=== PATIENT | female | born 1995 | race Caucasian/White ===

== ENCOUNTER 2018-08-22 17:06 | Inpatient (IN) | payer OTHER ==
[2018-08-22] MEDS ORDERED: hydrOXYzine Pamoate 25 MG Cap ONE (17:23)
[2018-08-22] MEDS ORDERED: Ampicillin 2 GM AdvVial IV ONE (18:52)
[2018-08-22] MEDS ORDERED: Misoprostol 25 MCG (1/4 of 100 MCG) Tab ONE (18:54)
[2018-08-22] MEDS ORDERED: Sodium Chloride 0.9% 100 ML ONE (18:54)
[2018-08-22] MEDS ORDERED: Tranexamic Acid 1,000 MG in Sodium Chloride 0.9% 100 ML IV PRN (19:04)
[2018-08-22] MEDS ORDERED: Sodium Chloride 0.9% 2.5 ML Syringe FLUSH PRN (19:04)
[2018-08-22] MEDS ORDERED: Methylergonovine 0.2 MG/1 ML Amp IM PRN (19:04)
[2018-08-22] MEDS ORDERED: Ondansetron 4 MG/2 ML SDV IV PRN (19:04)
[2018-08-22] MEDS ORDERED: Nalbuphine 10 MG/1 ML Vial IVPUSH PRN (19:04)
[2018-08-22] MEDS ORDERED: Sodium Chloride 0.9% 10 ML Syringe FLUSH PRN (19:04)
[2018-08-22] MEDS ORDERED: Carboprost Tromethamine 250 MCG/1 ML Amp IM PRN (19:04)
[2018-08-22] MEDS ORDERED: Lidocaine 1% 50 ML MDV INJECT PRN (19:04)
[2018-08-22] MEDS ORDERED: Misoprostol 200 MCG Tab PO PRN (19:04)
[2018-08-22] MEDS ORDERED: Water For Irrigation,Sterile 1,000 ML Container IRR PRN (19:04)
[2018-08-22] MEDS ORDERED: Terbutaline 1 MG/ML SDV SUBCUT PRN (19:09)
[2018-08-22] MEDS ORDERED: Misoprostol 25 MCG (1/4 of 100 MCG) Tab VAG PRN (19:09)
[2018-08-22] MEDS ORDERED: Oxytocin/0.9 % Sodium Chloride 30 UNIT/500 ML BAG IV SCH ×2 (19:15)
[2018-08-22] MEDS: Sodium Chloride 0.9% 1,000 ML IV SCH (19:22)
[2018-08-22] MEDS: Ampicillin 1 GM in Sodium Chloride 0.9% 50 ML IV SCH (23:40)
[2018-08-23] MEDS ORDERED: Misoprostol 25 MCG (1/4 of 100 MCG) Tab VAG PRN (01:00)
[2018-08-23] MEDS: Ampicillin 1 GM in Sodium Chloride 0.9% 50 ML IV SCH ×5 (04:07→19:55)
[2018-08-23] MEDS: Butorphanol 1 MG/ML SDV IVPUSH PRN ×2 (09:38→11:49)
[2018-08-23] MEDS: Sodium Chloride 0.9% 1,000 ML IV SCH ×3 (11:00→17:36)
[2018-08-23] MEDS ORDERED: Lidocaine HCl/EPINEPHrine 5 ML IJ ONE (15:41)
--- NOTE | 2018-08-23 15:41 | PCM.PREANE ---
Preanesthetic Assessment - Anesthesia/Transfusion/Family Hx Anesthesia History: Prior Anesthesia Without Reaction Family History of Anesthesia Reaction: No - Review of Systems General: No Symptoms Pulmonary: No Symptoms Cardiovascular: No Symptoms Gastrointestinal: No Symptoms Neurological: No Symptoms Other: Reports: None - Physical Assessment Height: 5 ft 5 in Weight: 63.049 kg ASA Class: 2 Mental Status: Alert & Oriented x3 Airway Class: Mallampati = 2 Dentition: Reports: Normal Dentition Thyro-Mental Finger Breadths: 3 Mouth Opening Finger Breadths: 3 ROM/Head Extension: Full Lungs: Clear to Auscultation, Normal Respiratory Effort Cardiovascular: Regular Rate, Regular Rhythm - Lab Values: Laboratory Last Values WBC 14.79 K/uL (4.0-11.0) H 08/22/18 18: RBC 4.41 M/uL (4.30-5.90) 08/22/18 18: Hgb 11.3 g/dL (12.0-16.0) L 08/22/18 18: Hct 33.9 % (36.0-46.0) L 08/22/18 18: MCV 76.9 fL (80.0-98.0) L 08/22/18 18: MCH 25.6 pg (27.0-32.0) L 08/22/18 18: MCHC 33.3 g/dL (31.0-37.0) 08/22/18 18: RDW Std Deviation 43.0 fl (28.0-62.0) 08/22/18 18: RDW Coeff of Rhiannon 16 % (11.0-15.0) H 08/22/18 18: Plt Count 173 K/uL (150-400) 08/22/18 18: MPV 9.90 fL (7.40-12.00) 08/22/18 18: Nucleated RBC % 0.0 /100WBC 08/22/18 18: Nucleated RBCs # 0 K/uL 08/22/18 18: Blood Type O POSITIVE 08/22/18 18: Antibody Screen NEGATIVE 08/22/18 18: - Allergies Allergies/Adverse Reactions: Allergies Allergy/AdvReac Type Severity Reaction Status Date / Time No Known Allergies Allergy Verified 08/22/18 19:02 - Acknowledgements Anesthesia Type Planned: Epidural Pt an Appropriate Candidate for the Planned Anesthesia: Yes Alternatives and Risks of Anesthesia Discussed w Pt/Guardian: Yes Pt/Guardian Understands and Agrees with Anesthesia Plan: Yes PreAnesthesia Questionnaire HEENT History: Reports: None Cardiovascular History: Reports: None Respiratory History: Reports: None Gastrointestinal History: Reports: GERD Genitourinary History: Reports: None PHOTOGRAPH ENLARGER History: Reports: : 1 Para: 0 LMP (Approximate): Musculoskeletal History: Reports: None Neurological History: Reports: None Psychiatric History: Reports: None Endocrine/Metabolic History: Reports: None Immunologic History: Reports: None Oncologic (Cancer) History: Reports: None Dermatologic History: Reports: None - Infectious Disease History Infectious Disease History: Reports: None - Past Surgical History HEENT Surgical History: Reports: Tonsillectomy Other HEENT Surgeries/Procedures: 2007 GI Surgical History: Reports: Appendectomy Other GI Surgeries/Procedures: 2017 - SUBSTANCE USE Smoking Status *Q: Never Smoker Second Hand Smoke Exposure: No Recreational Drug Use History: No - CURRENT (IN HOUSE) MEDS Current Meds: Current Medications Butorphanol Tartrate (Stadol) 1 mg IVPUSH Q1H PRN PRN Reason: Pain Last Admin: 08/23/18 11:49 Dose: 1 mg Carboprost Tromethamine (Hemabate Ds) 250 mcg IM ASDIRECTED PRN PRN Reason: Post Hemorrhage Oxytocin/Sodium Chloride (Oxytocin 30 Unit/500 Ml-Ns) 30 unit in 500 mls @ 999 mls/hr IV TITRATE DEE Sodium Chloride (Normal Saline) 1,000 mls @ 150 mls/hr IV ASDIRECTED DEE Last Admin: 08/23/18 11:00 Dose: 150 mls/hr Tranexamic Acid 1,000 mg/ (Sodium Chloride) 110 mls @ 660 mls/hr IV ONETIME PRN PRN Reason: Bleeding Oxytocin/Sodium Chloride (Oxytocin 30 Unit/500 Ml-Ns) 30 unit in 500 mls @ 2 mls/hr IV TITRATE DEE; Protocol Last Titration: 08/23/18 14:12 Dose: 4 munits/min, 4 mls/hr Ampicillin Sodium 1 gm/ Sodium (Chloride) 50 mls @ 100 mls/hr IV Q4H DEE Last Admin: 08/23/18 11:56 Dose: 100 mls/hr Lidocaine HCl (Xylocaine 1%) 50 ml INJECT ONETIME PRN PRN Reason: Laceration repair Methylergonovine Maleate (Methergine) 0.2 mg IM ASDIRECTED PRN PRN Reason: Post Hemorrhage Misoprostol (Cytotec) 200 mcg PO ONETIME PRN PRN Reason: Post Hemorrhage Misoprostol (Cytotec) 25 mcg VAG Q6H PRN PRN Reason: Cervical Ripening Last Admin: 08/23/18 01:06 Dose: 25 mcg Misoprostol (Cytotec) 25 mcg VAG Q4H PRN PRN Reason: Cervical Ripening Nalbuphine HCl (Nubain) 10 mg IVPUSH Q1H PRN PRN Reason: Pain (severe 7-10) Ondansetron HCl (Zofran) 4 mg IV Q6H PRN PRN Reason: Nausea/Vomiting Sodium Chloride (Saline Flush) 10 ml FLUSH ASDIRECTED PRN PRN Reason: Keep Vein Open Sodium Chloride (Saline Flush) 2.5 ml FLUSH ASDIRECTED PRN PRN Reason: Keep Vein Open Sterile Water (Sterile Water For Irrigation) 1,000 ml IRR ASDIRECTED PRN PRN Reason: delivery Terbutaline Sulfate (Brethine) 0.25 mg SUBCUT ASDIRECTED PRN PRN Reason: Tacysystole Discontinued Medications Ampicillin Sodium (Ampicillin) Confirm Administered Dose 2 gm IV .STK-MED ONE Stop: 08/22/18 18:53 Last Admin: 08/22/18 19:23 Dose: 2 gm Sodium Chloride (Normal Saline) Confirm Administered Dose 100 mls @ as directed .ROUTE .STK-MED ONE Stop: 08/22/18 18:55 Last Admin: 08/22/18 19:23 Dose: 200 mls/hr Misoprostol (Cytotec) Confirm Administered Dose 25 mcg .ROUTE .STK-MED ONE Stop: 08/22/18 18:55 Last Admin: 08/22/18 19:18 Dose: 25 mcg
[2018-08-23] MEDS ORDERED: Terbutaline 1 MG/ML SDV ONE (17:30)
[2018-08-23] MEDS ORDERED: Acetaminophen 500 MG Tab PO ONE (22:31)
[2018-08-23] MEDS ORDERED: Lactated Ringers 1,000 ML IV SCH (22:45)
[2018-08-24] MEDS: Ampicillin 1 GM in Sodium Chloride 0.9% 50 ML IV SCH (00:01)
[2018-08-24] MEDS ORDERED: ceFAZolin 2 GM in Premix Bag 1 BAG IV ONE (00:03)
[2018-08-24] MEDS ORDERED: Bupivacaine 0.5% 10 ML SDV ONE (00:08)
[2018-08-24] MEDS ORDERED: Citric Acid/Sodium Citrate Solution 30 ML Cup ONE (00:08)
[2018-08-24] MEDS ORDERED: Ondansetron 4 MG/2 ML SDV ONE (00:23)
[2018-08-24] MEDS ORDERED: Midazolam 1 MG/ML 2 ML SDV ONE (00:27)
[2018-08-24] MEDS ORDERED: Nalbuphine 10 MG/1 ML Vial IVPUSH PRN (00:50)
[2018-08-24] MEDS ORDERED: fentaNYL 100 MCG/2 ML SDV IVPUSH PRN (00:50)
[2018-08-24] MEDS ORDERED: HYDROmorphone 2 MG/ML SDV IVPUSH ONE (00:50)
[2018-08-24] MEDS ORDERED: Propofol 200 MG/20 ML SDV ONE (00:55)
[2018-08-24] MEDS ORDERED: Phenylephrine/Normal Saline 100 MCG/ML 10 ML Syringe ONE (01:07)
[2018-08-24] MEDS ORDERED: Oxytocin/0.9 % Sodium Chloride 30 UNIT/500 ML BAG ONE (01:07)
[2018-08-24] MEDS ORDERED: Morphine PF 10 MG/10 ML SDV ONE (01:29)
[2018-08-24] MEDS ORDERED: Lanolin 100% Cream 7 GM Tube TOP PRN (01:32)
[2018-08-24] MEDS ORDERED: Bisacodyl 10 MG Supp RECTAL PRN (01:32)
[2018-08-24] MEDS ORDERED: Ondansetron 4 MG/2 ML SDV IVPUSH PRN (01:32)
[2018-08-24] MEDS ORDERED: Acetaminophen/oxyCODONE 325-5 MG Tab PO PRN (01:32)
[2018-08-24] MEDS ORDERED: diphenhydrAMINE 50 MG/ML SDV IVPUSH PRN (01:32)
[2018-08-24] MEDS ORDERED: Meperidine PF 25 MG/ML Syringe ONE (01:33)
--- NOTE | 2018-08-24 01:41 | PCM.OPNOTE ---
- General Post-Op/Procedure Note Date of Surgery/Procedure: 08/24/18 Operative Procedure(s): Emergency primary section Findings: Male , Wt 2780grams, Apgars 6 and 8, tight nuchal cord x 1. Grossly normal placenta with 3 vessel cord. Normal appearing uterus, tubes and ovaries Pre Op Diagnosis: 39w3d. intolerance to labor Post-Op Diagnosis: Same Anesthesia Technique: Epidural Primary Surgeon: Adelina Garcia Pathology: Placenta Fluid Replacement, Intraop: 1,000 Output, Urine Amount: 100 EBL in mLs: 500 Complications: None Condition: Good Free Text/Narrative:: Intake & Output 08/23/18 08/23/18 08/24/18 14:59 22:59 06:59 Intake Total 50 Balance 50
[2018-08-24] MEDS ORDERED: Lactated Ringers 1,000 ML IV SCH (01:45)
--- NOTE | 2018-08-24 01:47 | PCM.POSTAN ---
POST ANESTHESIA ASSESSMENT - MENTAL STATUS Mental Status: Alert, Oriented - VITAL SIGNS Pulse Rate: 82 SaO2: 98 Resp Rate: 16 Blood Pressure: 133/75 - RESPIRATORY Respiratory Status: Respiratory Rate WNL, Airway Patent, O2 Saturation Stable - CARDIOVASCULAR CV Status: Pulse Rate WNL, Blood Pressure Stable - GASTROINTESTINAL GI Status: No Symptoms - PAIN Pain Score: 3 - POST OP HYDRATION Hydration Status: Adequate & Stable
[2018-08-24] MEDS: Ketorolac 30 MG/ML SDV IVPUSH SCH ×4 (01:48→19:53)
[2018-08-24] MEDS: Acetaminophen/oxyCODONE 325-5 MG Tab PO PRN ×4 (04:35→23:11)
--- NOTE | 2018-08-24 07:30 | PCM48HPAN ---
Post Anesthesia Note - EVALUATION WITHIN 48HRS OF ANESTHETIC Vital Signs in Normal Range: Yes Patient Participated in Evaluation: Yes Respiratory Function Stable: Yes Airway Patent: Yes Cardiovascular Function Stable: Yes Hydration Status Stable: Yes Pain Control Satisfactory: Yes (States she "took some pills and doing okay for now") Nausea and Vomiting Control Satisfactory: Yes Mental Status Recovered: Yes Pulse Rate: 82 Resp Rate: 18 Temperature: 37.8 C Blood Pressure: 133/75
--- NOTE | 2018-08-24 07:31 | PCM48HPAN ---
Post Anesthesia Note - EVALUATION WITHIN 48HRS OF ANESTHETIC Vital Signs in Normal Range: Yes Patient Participated in Evaluation: Yes Respiratory Function Stable: Yes Airway Patent: Yes Cardiovascular Function Stable: Yes Hydration Status Stable: Yes Pain Control Satisfactory: Yes Nausea and Vomiting Control Satisfactory: Yes Mental Status Recovered: Yes Pulse Rate: 82 Resp Rate: 18 Temperature: 100.1 F Blood Pressure: 133/75 - COMMENTS/OBSERVATIONS Free Text/Narrative:: Due to high narcotic demand intra-op, patient was kept in extended Phase II/ Obs. Patient has done well overnight and is ambulating without difficulty. She can be discharge when cleared by surgeon.
[2018-08-24] MEDS: Docusate Sodium 100 MG Cap PO SCH (08:06)
--- NOTE | 2018-08-24 08:48 | OR ---
SURGEON: Adelina Garcia MD DATE OF PROCEDURE: 08/24/2018 PREOPERATIVE DIAGNOSES: 1. Term at 39 weeks and 2 days gestation. 2. intolerance to labor. POSTOPERATIVE DIAGNOSES: 1. Term at 39 weeks and 2 days gestation. 2. intolerance to labor. PROCEDURE: Primary low transverse section via Pfannenstiel. ANESTHESIA: Epidural. ESTIMATED BLOOD LOSS: 500 mL. IV FLUIDS: 1000 mL of crystalloid. URINE OUTPUT: 100 mL clear at the end of the procedure. COMPLICATIONS: None. DISPOSITION: The patient is stable to recovery room. FINDINGS: Male , weight 2780 g, scores 6 and 8 at one and five minutes respectively. Tight nuchal cord x1. Clear amniotic fluid. Grossly normal placenta with three-vessel cord. Normal-appearing uterus, tubes, and ovaries. BRIEF HISTORY: Sariah is a 23-year-old primigravida, who transferred care to [facility] at 35 weeks gestation. Her care was uncomplicated. She was admitted on the for induction of labor at 39 weeks and 1 day gestation for suspected small for gestational age fetus with normal amniotic fluid. GBS was positive. She received Cytotec for cervical ripening, and oxytocin infusion was commenced. Throughout the day, she had non-reassuring heart tracing with episodes of variable and late decelerations, despite intrapartum resuscitative measures, which included amnioinfusion, terbutaline, oxygen, IV fluid boluses, and change in maternal position. She continued to have recurrent late decelerations and a section was called for intolerance to labor. Her maximum dilatation was 5 cm on maximum pitocin of 8 milliunits per minute. Appropriate consent was obtained. The patient had received ampicillin for GBS prophylaxis and with the next dose up, she was given Ancef preop. DESCRIPTION OF PROCEDURE: The patient was taken to the operating room and was placed in dorsal supine position with leftward tilt. She was then prepped and draped in the usual sterile fashion for a . Ancef 2 g was given. Appropriate time-out was held. A Pfannenstiel skin incision was made and carried through to the underlying layer of the fascia with the Bovie. This incision was extended laterally with the Britt scissors. The superior aspect of this fascial incision was grasped with Nevin clamps, elevated, and underlying rectus muscle was dissected off with the Britt. Attention was turned to the inferior aspect of this fascial incision, which was grasped with Nevin clamps, elevated, and the underlying rectus muscle dissected off with the Britt. The rectus muscle was in the midline and the parietal peritoneum was reached and entered bluntly. This was then stretched further laterally. A self-retaining Nain O retractor was placed into the abdominal cavity. The vesicouterine peritoneum was grasped with pickups and entered sharply with Metzenbaum scissors, and a bladder flap was created digitally. A transverse incision was made with a scalpel in the lower uterine segment and was extended upwards and downwards bluntly. The 's head was delivered atraumatically and was found to have a very tight nuchal cord. This was subsequently reduced and then the shoulders were delivered without difficulty, followed by the rest of the baby. Baby was vigorous at . The cord was double clamped and the was handed over to the awaiting automatic spinning lathe operator, Dr. Crooks. Cord blood and gas samples were obtained. The placenta was delivered spontaneously by massage. The uterus was cleared of all clot and debris. The hysterotomy was repaired in 2 layers using 0 Vicryl suture. The first layer was repaired in a running locking fashion and second imbricating layer was performed to obtain excellent hemostasis. Irrigation was performed. The tubes and ovaries were examined. Hysterotomy site was reexamined and found to be hemostatic. The Nain O retractor was then removed from the abdominal cavity. The edges of the parietal peritoneum were identified, and this layer was closed in a running fashion with 2-0 Vicryl. The muscular layer was reapproximated with 2-0 Vicryl using mattress stitches. The subfascial layer was found to be completely hemostatic. The fascia was then closed in a running fashion using 0 Vicryl suture. The subcuticular layer was made hemostatic with electrocautery. The skin was then closed with 4-0 Monocryl in a running fashion using subcuticular stitches. The patient tolerated the procedure well. Sponge, instrument, and needle counts were correct at the end of the procedure. The patient was taken to the recovery room in stable condition and the baby to the nursery in a stable condition. GUMAROUMGABRIELLAV / MODL /[id number] MTDDonna
[2018-08-24] MEDS ORDERED: Ibuprofen 800 MG Tab ONE (20:13)
[2018-08-24] MEDS: Ibuprofen 800 MG Tab PO PRN (20:16)
[2018-08-25] MEDS: Docusate Sodium 100 MG Cap PO SCH ×3 (00:33→20:06)
[2018-08-25] MEDS: Acetaminophen/oxyCODONE 325-5 MG Tab PO PRN ×4 (03:56→20:06)
[2018-08-25] MEDS: Ibuprofen 800 MG Tab PO PRN ×2 (07:44→16:57)
--- NOTE | 2018-08-25 09:12 | PCM.PNPP ---
- General Info Date of Service: 08/25/18 Subjective Update: 23 yo P1 s/p primary , she has fair pain control , she is ambulating , voiding and tolerating regular diet. POD 1 Functional Status: Reports: Pain Controlled, Tolerating Diet, Ambulating, Urinating - Review of Systems General: Reports: No Symptoms HEENT: Reports: No Symptoms Pulmonary: Reports: No Symptoms Cardiovascular: Reports: No Symptoms Gastrointestinal: Reports: No Symptoms Genitourinary: Reports: No Symptoms Musculoskeletal: Reports: No Symptoms Skin: Reports: No Symptoms Neurological: Reports: No Symptoms Psychiatric: Reports: No Symptoms - General Info Date of Service: 08/25/18 - Patient Data Vital Signs - Most Recent: Last Vital Signs Temp 37.2 C 08/25/18 07:15 Pulse 72 08/25/18 07:15 Resp 17 08/25/18 07:15 BP 108/63 08/25/18 07:15 Pulse Ox 98 08/25/18 07:15 Weight - Most Recent: 63.049 kg I&O - Last 24 Hours: Intake & Output 08/24/18 08/25/18 08/25/18 22:59 06:59 14:59 Output Total 100 Balance -100 Lab Results - Last 24 Hours: Laboratory Results - last 24 hr 08/25/18 Range/Units 05:43 Hgb 8.5 L (12.0-16.0) g/dL Hct 26.4 L (36.0-46.0) % Med Orders - Current: Current Medications Bisacodyl (Dulcolax) 10 mg RECTAL ONETIME PRN PRN Reason: Constipation Diphenhydramine HCl (Benadryl) 25 mg IVPUSH Q6H PRN PRN Reason: Itching or Nausea Docusate Sodium (Colace) 100 mg PO BID DEE Last Admin: 08/25/18 00:33 Dose: Not Given Emollient Ointment (Lansinoh Hpa) 0 gm TOP ASDIRECTED PRN PRN Reason: Sore Nipples Lactated Ringer's (Ringers, Lactated) 1,000 mls @ 125 mls/hr IV ASDIRECTED DEE Ibuprofen (Motrin) 800 mg PO Q8H PRN PRN Reason: mild pain or fever Last Admin: 08/25/18 07:44 Dose: 800 mg Ondansetron HCl (Zofran) 4 mg IVPUSH Q4H PRN PRN Reason: Nausea/Vomiting Oxycodone/Acetaminophen (Percocet 325-5 Mg) 1 - 2 tab PO Q4H PRN PRN Reason: Pain (moderate 4-6) Last Admin: 08/25/18 03:56 Dose: 1 tab Discontinued Medications Acetaminophen (Tylenol Extra Strength) 1,000 mg PO ONETIME ONE Stop: 08/23/18 22:32 Last Admin: 08/23/18 22:40 Dose: 1,000 mg Ampicillin Sodium (Ampicillin) Confirm Administered Dose 2 gm IV .STK-MED ONE Stop: 08/22/18 18:53 Last Admin: 08/22/18 19:23 Dose: 2 gm Bupivacaine HCl (Sensorcaine-Mpf 0.5%) Confirm Administered Dose 20 ml .ROUTE .STK-MED ONE Stop: 08/24/18 00:09 Last Admin: 08/24/18 11:13 Dose: Not Given Butorphanol Tartrate (Stadol) 1 mg IVPUSH Q1H PRN PRN Reason: Pain Last Admin: 08/23/18 11:49 Dose: 1 mg Carboprost Tromethamine (Hemabate Ds) 250 mcg IM ASDIRECTED PRN PRN Reason: Post Hemorrhage Citric Acid/Sodium Citrate (Bicitra Solution) Confirm Administered Dose 30 ml .ROUTE .STK-MED ONE Stop: 08/24/18 00:09 Last Admin: 08/24/18 11:13 Dose: Not Given Fentanyl (Sublimaze) 50 mcg IVPUSH Q5M PRN PRN Reason: Pain (severe 7-10) Stop: 08/25/18 00:50 Hydromorphone HCl (Dilaudid) 2 mg IVPUSH ONETIME ONE Stop: 08/24/18 00:51 Sodium Chloride (Normal Saline) Confirm Administered Dose 100 mls @ as directed .ROUTE .STK-MED ONE Stop: 08/22/18 18:55 Last Admin: 08/22/18 19:23 Dose: 200 mls/hr Oxytocin/Sodium Chloride (Oxytocin 30 Unit/500 Ml-Ns) 30 unit in 500 mls @ 999 mls/hr IV TITRATE DEE Sodium Chloride (Normal Saline) 1,000 mls @ 150 mls/hr IV ASDIRECTED DEE Last Admin: 08/23/18 17:36 Dose: 150 mls/hr Tranexamic Acid 1,000 mg/ (Sodium Chloride) 110 mls @ 660 mls/hr IV ONETIME PRN PRN Reason: Bleeding Oxytocin/Sodium Chloride (Oxytocin 30 Unit/500 Ml-Ns) 30 unit in 500 mls @ 2 mls/hr IV TITRATE DEE; Protocol Last Titration: 08/23/18 23:26 Dose: 8 munits/min, 8 mls/hr Ampicillin Sodium 1 gm/ Sodium (Chloride) 50 mls @ 100 mls/hr IV Q4H [facility] Last Infusion: 08/23/18 20:25 Dose: Infused Fentanyl/Bupivacaine HCl (Wvkikxhc-Vetkk-On 2 Mcg/Ml-0.125%) Confirm Administered Dose 100 mls @ as directed .ROUTE .STK-MED ONE Stop: 08/23/18 15:42 Last Admin: 08/24/18 11:08 Dose: Not Given Fentanyl/Bupivacaine HCl (Rgzubrsn-Zljys-Pd 2 Mcg/Ml-0.125%) Confirm Administered Dose 100 mls @ as directed .ROUTE .STK-MED ONE Stop: 08/23/18 22:16 Last Admin: 08/24/18 11:10 Dose: Not Given Lactated Ringer's (Ringers, Lactated) 1,000 mls @ 150 mls/hr IV ASDIRECTED [facility] Last Admin: 08/23/18 23:57 Dose: 500 mls/hr Cefazolin Sodium/Dextrose 2 gm (/ Premix) 50 mls @ 100 mls/hr IV ONETIME ONE Stop: 08/24/18 00:32 Last Admin: 08/24/18 11:13 Dose: Not Given Oxytocin/Sodium Chloride (Oxytocin 30 Unit/500 Ml-Ns) Confirm Administered Dose 30 unit in 500 mls @ as directed .ROUTE .STK-MED ONE Stop: 08/24/18 01:08 Ibuprofen (Motrin) Confirm Administered Dose 800 mg .ROUTE .STK-MED ONE Stop: 08/24/18 20:14 Last Admin: 08/24/18 20:19 Dose: 800 mg Ketorolac Tromethamine (Toradol) 30 mg IVPUSH Q6H [facility] Stop: 08/25/18 02:01 Last Admin: 08/24/18 14:26 Dose: 30 mg Lidocaine HCl (Xylocaine 1%) 50 ml INJECT ONETIME PRN PRN Reason: Laceration repair Lidocaine/Epinephrine (Lidocaine 1.5%-Epi 1:200,000) Confirm Administered Dose 5 ml IJ .STK-MED ONE Stop: 08/23/18 15:42 Last Admin: 08/24/18 11:09 Dose: Not Given Meperidine HCl (Demerol) Confirm Administered Dose 25 mg .ROUTE .STK-MED ONE Stop: 08/24/18 01:34 Last Admin: 08/24/18 18:59 Dose: Not Given Methylergonovine Maleate (Methergine) 0.2 mg IM ASDIRECTED PRN PRN Reason: Post Hemorrhage Midazolam HCl (Versed 1 Mg/Ml) Confirm Administered Dose 2 mg .ROUTE .STK-MED ONE Stop: 08/24/18 00:28 Misoprostol (Cytotec) Confirm Administered Dose 25 mcg .ROUTE .STK-MED ONE Stop: 08/22/18 18:55 Last Admin: 08/22/18 19:18 Dose: 25 mcg Misoprostol (Cytotec) 200 mcg PO ONETIME PRN PRN Reason: Post Hemorrhage Misoprostol (Cytotec) 25 mcg VAG Q6H PRN PRN Reason: Cervical Ripening Last Admin: 08/23/18 01:06 Dose: 25 mcg Misoprostol (Cytotec) 25 mcg VAG Q4H PRN PRN Reason: Cervical Ripening Morphine Sulfate (Duramorph Pf) Confirm Administered Dose 10 mg .ROUTE .STK-MED ONE Stop: 08/24/18 01:30 Nalbuphine HCl (Nubain) 10 mg IVPUSH Q1H PRN PRN Reason: Pain (severe 7-10) Nalbuphine HCl (Nubain) 2.5 mg IVPUSH Q3H PRN PRN Reason: Pruritis Stop: 08/25/18 00:51 Ondansetron HCl (Zofran) 4 mg IV Q6H PRN PRN Reason: Nausea/Vomiting Last Admin: 08/23/18 19:08 Dose: 4 mg Ondansetron HCl (Zofran) Confirm Administered Dose 4 mg .ROUTE .STK-MED ONE Stop: 08/24/18 00:24 Oxycodone/Acetaminophen (Percocet 325-5 Mg) 2 tab PO Q4H PRN PRN Reason: Pain (moderate 4-6) Phenylephrine HCl (Phenylephrine In Ns 100 Mcg/Ml) Confirm Administered Dose 1 mg .ROUTE .STK-MED ONE Stop: 08/24/18 01:08 Propofol (Diprivan 20 Ml) Confirm Administered Dose 200 mg .ROUTE .STK-MED ONE Stop: 08/24/18 00:56 Sodium Chloride (Saline Flush) 10 ml FLUSH ASDIRECTED PRN PRN Reason: Keep Vein Open Sodium Chloride (Saline Flush) 2.5 ml FLUSH ASDIRECTED PRN PRN Reason: Keep Vein Open Sterile Water (Sterile Water For Irrigation) 1,000 ml IRR ASDIRECTED PRN PRN Reason: delivery Terbutaline Sulfate (Brethine) 0.25 mg SUBCUT ASDIRECTED PRN PRN Reason: Tacysystole Last Admin: 08/23/18 17:32 Dose: 0.25 mg Terbutaline Sulfate (Brethine) Confirm Administered Dose 1 mg .ROUTE .STK-MED ONE Stop: 08/23/18 17:31 Last Admin: 08/24/18 11:09 Dose: Not Given - Infant Interaction Support Person: - Recovery Exam Fundal Tone: Firm Fundal Level: 1 Fingerbreadths Below Umbilicus Fundal Placement: Midline Lochia Amount: Scant Lochia Color: Rubra/Red Perineum Description: Intact, Minimal Bruising/Swelling Episiotomy/Laceration: None Bladder Status: Voiding Urinary Elimination: Voided - Exam General: Alert, Oriented HEENT: Pupils Equal Lungs: Clear to Auscultation, Normal Respiratory Effort Cardiovascular: Regular Rhythm GI/Abdominal Exam: Normal Bowel Sounds, Other (pfannestiel skin incision with dressing in place , slight stained not expanding ) Extremities: Normal Inspection Neurological: No New Focal Deficit - Problem List & Annotations (1) delivery delivered SNOMED Code(s): 835883840 Code(s): O82 - ENCOUNTER FOR DELIVERY WITHOUT INDICATION Status: Acute Current Visit: Yes - Problem List Review Problem List Initiated/Reviewed/Updated: Yes - Assessment Assessment:: 23yo P1 s/p Primary LTCS , , ambulating ,normal lochia .PPD 1 - Plan Plan:: Continue Informed nurse about fair pain control to give medication in a standing regimen Incentive spirometry Routine care
[2018-08-25] MEDS: Ketorolac 30 MG/ML SDV IVPUSH SCH (15:03)
[2018-08-26] MEDS: Acetaminophen/oxyCODONE 325-5 MG Tab PO PRN ×2 (00:32→05:25)
[2018-08-26] MEDS: Ibuprofen 800 MG Tab PO PRN (05:24)
--- NOTE | 2018-08-26 09:21 | PCM.PNPP ---
- General Info Date of Service: 08/26/18 Subjective Update: 23 yo P1 s/p primary , she has fair pain control , she is ambulating , voiding and tolerating regular diet. POD 2 Functional Status: Reports: Pain Controlled, Tolerating Diet, Ambulating, Urinating - Review of Systems General: Reports: No Symptoms HEENT: Reports: No Symptoms Pulmonary: Reports: No Symptoms Cardiovascular: Reports: No Symptoms Gastrointestinal: Reports: No Symptoms Genitourinary: Reports: No Symptoms Musculoskeletal: Reports: No Symptoms Skin: Reports: No Symptoms Neurological: Reports: No Symptoms Psychiatric: Reports: No Symptoms - General Info Date of Service: 08/26/18 - Patient Data Vital Signs - Most Recent: Last Vital Signs Temp 37.1 C 08/26/18 07:30 Pulse 75 08/26/18 07:30 Resp 17 08/26/18 07:30 BP 114/72 08/26/18 07:30 Pulse Ox 97 08/26/18 07:30 Weight - Most Recent: 63.049 kg Med Orders - Current: Current Medications Bisacodyl (Dulcolax) 10 mg RECTAL ONETIME PRN PRN Reason: Constipation Diphenhydramine HCl (Benadryl) 25 mg IVPUSH Q6H PRN PRN Reason: Itching or Nausea Docusate Sodium (Colace) 100 mg PO BID [facility] Last Admin: 08/25/18 20:06 Dose: 100 mg Emollient Ointment (Lansinoh Hpa) 0 gm TOP ASDIRECTED PRN PRN Reason: Sore Nipples Last Admin: 08/25/18 18:47 Dose: 7 gram Lactated Ringer's (Ringers, Lactated) 1,000 mls @ 125 mls/hr IV ASDIRECTED [facility] Ibuprofen (Motrin) 800 mg PO Q8H PRN PRN Reason: mild pain or fever Last Admin: 08/26/18 05:24 Dose: 800 mg Ondansetron HCl (Zofran) 4 mg IVPUSH Q4H PRN PRN Reason: Nausea/Vomiting Oxycodone/Acetaminophen (Percocet 325-5 Mg) 1 - 2 tab PO Q4H PRN PRN Reason: Pain (moderate 4-6) Last Admin: 08/26/18 05:25 Dose: 1 tab Discontinued Medications Acetaminophen (Tylenol Extra Strength) 1,000 mg PO ONETIME ONE Stop: 08/23/18 22:32 Last Admin: 08/23/18 22:40 Dose: 1,000 mg Ampicillin Sodium (Ampicillin) Confirm Administered Dose 2 gm IV .STK-MED ONE Stop: 08/22/18 18:53 Last Admin: 08/22/18 19:23 Dose: 2 gm Bupivacaine HCl (Sensorcaine-Mpf 0.5%) Confirm Administered Dose 20 ml .ROUTE .STK-MED ONE Stop: 08/24/18 00:09 Last Admin: 08/24/18 11:13 Dose: Not Given Butorphanol Tartrate (Stadol) 1 mg IVPUSH Q1H PRN PRN Reason: Pain Last Admin: 08/23/18 11:49 Dose: 1 mg Carboprost Tromethamine (Hemabate Ds) 250 mcg IM ASDIRECTED PRN PRN Reason: Post Hemorrhage Citric Acid/Sodium Citrate (Bicitra Solution) Confirm Administered Dose 30 ml .ROUTE .STK-MED ONE Stop: 08/24/18 00:09 Last Admin: 08/24/18 11:13 Dose: Not Given Fentanyl (Sublimaze) 50 mcg IVPUSH Q5M PRN PRN Reason: Pain (severe 7-10) Stop: 08/25/18 00:50 Hydromorphone HCl (Dilaudid) 2 mg IVPUSH ONETIME ONE Stop: 08/24/18 00:51 Last Admin: 08/25/18 21:25 Dose: Not Given Sodium Chloride (Normal Saline) Confirm Administered Dose 100 mls @ as directed .ROUTE .STK-MED ONE Stop: 08/22/18 18:55 Last Admin: 08/22/18 19:23 Dose: 200 mls/hr Oxytocin/Sodium Chloride (Oxytocin 30 Unit/500 Ml-Ns) 30 unit in 500 mls @ 999 mls/hr IV TITRATE DEE Sodium Chloride (Normal Saline) 1,000 mls @ 150 mls/hr IV ASDIRECTED DEE Last Admin: 08/23/18 17:36 Dose: 150 mls/hr Tranexamic Acid 1,000 mg/ (Sodium Chloride) 110 mls @ 660 mls/hr IV ONETIME PRN PRN Reason: Bleeding Oxytocin/Sodium Chloride (Oxytocin 30 Unit/500 Ml-Ns) 30 unit in 500 mls @ 2 mls/hr IV TITRATE DEE; Protocol Last Titration: 08/23/18 23:26 Dose: 8 munits/min, 8 mls/hr Ampicillin Sodium 1 gm/ Sodium (Chloride) 50 mls @ 100 mls/hr IV Q4H [facility] Last Infusion: 08/23/18 20:25 Dose: Infused Fentanyl/Bupivacaine HCl ([id number] 2 Mcg/Ml-0.125%) Confirm Administered Dose 100 mls @ as directed .ROUTE .STK-MED ONE Stop: 08/23/18 15:42 Last Admin: 08/24/18 11:08 Dose: Not Given Fentanyl/Bupivacaine HCl ([id number]-Zdycq-Oe 2 Mcg/Ml-0.125%) Confirm Administered Dose 100 mls @ as directed .ROUTE .STK-MED ONE Stop: 08/23/18 22:16 Last Admin: 08/24/18 11:10 Dose: Not Given Lactated Ringer's (Ringers, Lactated) 1,000 mls @ 150 mls/hr IV ASDIRECTED [facility] Last Admin: 08/23/18 23:57 Dose: 500 mls/hr Cefazolin Sodium/Dextrose 2 gm (/ Premix) 50 mls @ 100 mls/hr IV ONETIME ONE Stop: 08/24/18 00:32 Last Admin: 08/24/18 11:13 Dose: Not Given Oxytocin/Sodium Chloride (Oxytocin 30 Unit/500 Ml-Ns) Confirm Administered Dose 30 unit in 500 mls @ as directed .ROUTE .STK-MED ONE Stop: 08/24/18 01:08 Ibuprofen (Motrin) Confirm Administered Dose 800 mg .ROUTE .STK-MED ONE Stop: 08/24/18 20:14 Last Admin: 08/24/18 20:19 Dose: 800 mg Ketorolac Tromethamine (Toradol) 30 mg IVPUSH Q6H [facility] Stop: 08/25/18 02:01 Last Admin: 08/25/18 15:03 Dose: Not Given Lidocaine HCl (Xylocaine 1%) 50 ml INJECT ONETIME PRN PRN Reason: Laceration repair Lidocaine/Epinephrine (Lidocaine 1.5%-Epi 1:200,000) Confirm Administered Dose 5 ml IJ .STK-MED ONE Stop: 08/23/18 15:42 Last Admin: 08/24/18 11:09 Dose: Not Given Meperidine HCl (Demerol) Confirm Administered Dose 25 mg .ROUTE .STK-MED ONE Stop: 08/24/18 01:34 Last Admin: 08/24/18 18:59 Dose: Not Given Methylergonovine Maleate (Methergine) 0.2 mg IM ASDIRECTED PRN PRN Reason: Post Hemorrhage Midazolam HCl (Versed 1 Mg/Ml) Confirm Administered Dose 2 mg .ROUTE .STK-MED ONE Stop: 08/24/18 00:28 Misoprostol (Cytotec) Confirm Administered Dose 25 mcg .ROUTE .STK-MED ONE Stop: 08/22/18 18:55 Last Admin: 08/22/18 19:18 Dose: 25 mcg Misoprostol (Cytotec) 200 mcg PO ONETIME PRN PRN Reason: Post Hemorrhage Misoprostol (Cytotec) 25 mcg VAG Q6H PRN PRN Reason: Cervical Ripening Last Admin: 08/23/18 01:06 Dose: 25 mcg Misoprostol (Cytotec) 25 mcg VAG Q4H PRN PRN Reason: Cervical Ripening Morphine Sulfate (Duramorph Pf) Confirm Administered Dose 10 mg .ROUTE .STK-MED ONE Stop: 08/24/18 01:30 Nalbuphine HCl (Nubain) 10 mg IVPUSH Q1H PRN PRN Reason: Pain (severe 7-10) Nalbuphine HCl (Nubain) 2.5 mg IVPUSH Q3H PRN PRN Reason: Pruritis Stop: 08/25/18 00:51 Ondansetron HCl (Zofran) 4 mg IV Q6H PRN PRN Reason: Nausea/Vomiting Last Admin: 08/23/18 19:08 Dose: 4 mg Ondansetron HCl (Zofran) Confirm Administered Dose 4 mg .ROUTE .STK-MED ONE Stop: 08/24/18 00:24 Oxycodone/Acetaminophen (Percocet 325-5 Mg) 2 tab PO Q4H PRN PRN Reason: Pain (moderate 4-6) Phenylephrine HCl (Phenylephrine In Ns 100 Mcg/Ml) Confirm Administered Dose 1 mg .ROUTE .STK-MED ONE Stop: 08/24/18 01:08 Propofol (Diprivan 20 Ml) Confirm Administered Dose 200 mg .ROUTE .STK-MED ONE Stop: 08/24/18 00:56 Sodium Chloride (Saline Flush) 10 ml FLUSH ASDIRECTED PRN PRN Reason: Keep Vein Open Sodium Chloride (Saline Flush) 2.5 ml FLUSH ASDIRECTED PRN PRN Reason: Keep Vein Open Sterile Water (Sterile Water For Irrigation) 1,000 ml IRR ASDIRECTED PRN PRN Reason: delivery Terbutaline Sulfate (Brethine) 0.25 mg SUBCUT ASDIRECTED PRN PRN Reason: Tacysystole Last Admin: 08/23/18 17:32 Dose: 0.25 mg Terbutaline Sulfate (Brethine) Confirm Administered Dose 1 mg .ROUTE .STK-MED ONE Stop: 08/23/18 17:31 Last Admin: 08/24/18 11:09 Dose: Not Given - Interaction Support Person: - Recovery Exam Fundal Tone: Firm Fundal Level: 1 Fingerbreadths Below Umbilicus Fundal Placement: Midline Lochia Amount: Scant Lochia Color: Rubra/Red Perineum Description: Intact, Minimal Bruising/Swelling Episiotomy/Laceration: None Bladder Status: Voiding Urinary Elimination: Voided - Exam General: Alert HEENT: Pupils Equal Neck: Supple Lungs: Clear to Auscultation Cardiovascular: Regular Rate, Regular Rhythm GI/Abdominal Exam: Normal Bowel Sounds Extremities: Normal Inspection Wound/Incisions: Dressing Dry and Intact Psy/Mental Status: Alert - Problem List & Annotations (1) delivery delivered SNOMED Code(s): 851820202 Code(s): O82 - ENCOUNTER FOR DELIVERY WITHOUT INDICATION Status: Acute Current Visit: Yes - Problem List Review Problem List Initiated/Reviewed/Updated: Yes - Assessment Assessment:: 23yo P1 s/p Primary LTCS , , ambulating ,normal lochia .PPD 2 - Plan Plan:: Discharge home
[2018-08-26] MEDS: Docusate Sodium 100 MG Cap PO SCH (10:44)
== END 2018-08-26 12:30 | disposition home or self-care (01) | DRG 788 ==
LOC: MW.OBCHECK 17:06 → MW.OB 17:08 → MW.OBCHECK 19:04 → OBSVTOIN 08-24 00:44 → MW.OB 08-24 02:10
PROVIDERS: ADMIT Obstetrics & Gynecology; ATTEND Obstetrics & Gynecology
PROC: 3E0R3BZ Introduction of Anesthetic Agent into Spinal Canal, Percutaneous Approach (ICD-10-PCS; 2018-08-23)
PROC: 00HU33Z Insertion of Infusion Device into Spinal Canal, Percutaneous Approach (ICD-10-PCS; 2018-08-23)
PROC: 10H07YZ Insertion of Other Device into Products of Conception, Via Natural or Artificial Opening (ICD-10-PCS; principal; 2018-08-24)
PROC: 10907ZC Drainage of Amniotic Fluid, Therapeutic from Products of Conception, Via Natural or Artificial Opening (ICD-10-PCS; principal; 2018-08-24)
PROC: 3E0P7VZ Introduction of Hormone into Female Reproductive, Via Natural or Artificial Opening (ICD-10-PCS; principal; 2018-08-24)
PROC: 10H073Z Insertion of Monitoring Electrode into Products of Conception, Via Natural or Artificial Opening (ICD-10-PCS; principal; 2018-08-24)
PROC: 10D00Z1 Extraction of Products of Conception, Low, Open Approach (ICD-10-PCS; principal; 2018-08-24)
PROC: 6A550ZT Pheresis of Cord Blood Stem Cells, Single (ICD-10-PCS; principal; 2018-08-24)
PROC: 3E033VJ Introduction of Other Hormone into Peripheral Vein, Percutaneous Approach (ICD-10-PCS; principal; 2018-08-24)
PROC: 3E0E7GC Introduction of Other Therapeutic Substance into Products of Conception, Via Natural or Artificial Opening (ICD-10-PCS; principal; 2018-08-24)
DX: O36.5930 Maternal care for other known or suspected poor fetal growth, third trimester, not applicable or unspecified (principal); O99.824 Streptococcus B carrier state complicating childbirth; Z37.0 Single live birth; Z3A.39 39 weeks gestation of pregnancy; O76 Abnormality in fetal heart rate and rhythm complicating labor and delivery; O69.1XX0 Labor and delivery complicated by cord around neck, with compression, not applicable or unspecified; O99.62 Diseases of the digestive system complicating childbirth; K21.9 Gastro-esophageal reflux disease without esophagitis
CPT/HCPCS: 36415; 51702; 59025; 82803; 85014; 85018; 85027; 86850; 86900; 86901; A9270-GY; J0290; J0595; J1885; J2250; J2270; J2370; J2405; J2590; J2704; J3105; J7030; J7040; J7050; J7120

== ENCOUNTER 2023-08-07 05:19 | Emergency (ER) | payer SELFPAY ==
[2023-08-07] MEDS ORDERED: Sodium Chloride 0.9% 2.5 ML Syringe FLUSH PRN (05:20)
[2023-08-07] MEDS ORDERED: Sodium Chloride 0.9% 10 ML Syringe FLUSH PRN (05:20)
[2023-08-07 05:43] LABS: BASOPHILS ABSOLUTE AUTO 0.01 K/uL (0.00-0.20); BASOPHILS PERCENT AUTO 0.4 % (0.0-1.0); HEMATOCRIT 38.9 % (37.0-47.0); HEMOGLOBIN 13.6 g/dL (12.0-16.0); IMMATURE GRAN ABSOLUTE AUTO 0.01 K/uL (0.00-0.05); IMMATURE GRAN PERCENT AUTO 0.4 % (0.0-0.4); LYMPHOCYTES ABSOLUTE AUTO 0.55 K/uL (1.00-4.80); LYMPHOCYTES PERCENT AUTO 21.8 % (24.0-44.0); MEAN CORPUSCULAR HEMOGLOBIN 28.8 pg (28.0-32.0); MEAN CORPUSCULAR VOLUME 82.2 fL (83.0-99.0); MEAN PLATELET VOLUME 9.5 fL (9.4-12.3); MONOCYTES ABSOLUTE AUTO 0.14 K/uL (0.00-0.80); MONOCYTES PERCENT AUTO 5.6 % (0.0-8.0); NEUTROPHILS ABSOLUTE AUTO 1.81 K/uL (1.80-7.70); NEUTROPHILS PERCENT AUTO 71.8 % (41.0-71.0); PLATELET COUNT,PLT 116 K/uL (150-400); RED BLOOD CELL COUNT 4.73 M/uL (4.10-5.30); WHITE BLOOD CELL COUNT,WBC 2.52 K/uL (3.9-11.3)
[2023-08-07] MEDS ORDERED: Acetaminophen 325 MG Tab PO ONE (05:52)
[2023-08-07] MEDS ORDERED: Ondansetron 4 MG/2 ML SDV IVPUSH ONE (05:52)
[2023-08-07 06:01] LABS: BILIRUBIN,URINE NEGATIVE (NEGATIVE); COLOR,URINE YELLOW; GLUCOSE,URINE NEGATIVE (NEGATIVE); KETONES,URINE NEGATIVE (NEGATIVE); LEUKOCYTE ESTERASE,URINE TRACE (NEGATIVE); NITRITE,URINE NEGATIVE (NEGATIVE); OCCULT BLOOD,URINE TRACE-INTACT (NEGATIVE); PROTEIN,URINE TRACE mg/dL (NEGATIVE)
[2023-08-07 06:04] LABS: APPEARANCE,URINE HAZY
[2023-08-07 06:05] LABS: BACTERIA,URINE 1+ (NEGATIVE); EPITHELIAL CELLS,URINE FEW (NONE-FEW); RBC,URINE 0-2 (0-2/HPF)
[2023-08-07 06:08] LABS: ALANINE AMINOTRANSFERASE,ALT 322 IU/L (14-63); ALBUMIN 3.6 g/dL (3.4-5.0); ALKALINE PHOSPHATASE 195 U/L (46-116); ASPARTATE AMNIOTRANSFERASE,AST 252 IU/L (15-37); BILIRUBIN TOTAL 0.6 mg/dL (0.2-1.0); BLOOD UREA NITROGEN,BUN 6 mg/dL (7.0-18.0); CALCIUM 8.1 mg/dL (8.5-10.1); CARBON DIOXIDE,CO2 25.6 mmol/L (21.0-32.0); CHLORIDE,CL 103 mmol/L (98-107); CREATININE 1.1 mg/dL (0.6-1.0); EST CRCL DRUG DOSING (CG) 67.29 mL/min; GLUCOSE RANDOM 117 mg/dL (74-106); POTASSIUM,K 3.9 mmol/L (3.5-5.1); PROTEIN TOTAL,TP 7.3 g/dL (6.4-8.2); SODIUM,NA 138 mmol/L (136-145)
[2023-08-07 06:09] LABS: ESTIMATED GFR 69 mL/min (>60)
[2023-08-07 06:20] LABS: CORONAVIRUS COVID-19 NAA NEGATIVE (NEGATIVE); INFLUENZA A NAA NEGATIVE (NEGATIVE); INFLUENZA B NAA NEGATIVE (NEGATIVE); RESPIRATORY SYNCYTIAL VIR NAA NEGATIVE (NEGATIVE)
[2023-08-07] MEDS ORDERED: Sodium Chloride 0.9% 1,000 ML IV ONE ×2 (06:58→07:16)
[2023-08-07] MEDS ORDERED: Iopamidol 755 MG/ML 500 ML Multipack Bottle IVPUSH ONE (07:09)
[2023-08-07] MEDS ORDERED: cefTRIAXone 1 GM in Sodium Chloride 0.9% 50 ML IV ONE (07:15)
[2023-08-07] MEDS ORDERED: Ibuprofen 400 MG Tab PO ONE (07:46)
[2023-08-07 08:00] LABS: LACTIC ACID 0.9 mmol/L (0.4-2.0)
== END 2023-08-07 09:35 | disposition home or self-care (01) ==
LOC: MW.ED 05:19
DX: B34.9 Viral infection, unspecified (principal); Z90.49 Acquired absence of other specified parts of digestive tract
CPT/HCPCS: 0241U; 36415; 71046; 71275; 74177; 76705; 80053; 81001; 81025; 83605; 84484; 85025; 85379; 87040; 93005; 96361; 96365; 96375; 99285; A9270; J0696; J2405; J3490; J7030; Q9967; 93010; 99284

== ENCOUNTER 2024-04-27 08:28 | Emergency (ER) | payer BC ==
[2024-04-27 08:49] LABS: BASOPHILS ABSOLUTE AUTO 0.05 K/uL (0.00-0.20); BASOPHILS PERCENT AUTO 0.7 % (0.0-1.0); EOSINOPHILS ABSOLUTE AUTO 0.14 K/uL (0.00-0.45); EOSINOPHILS PERCENT AUTO 2.1 % (0.0-6.0); HEMATOCRIT 44.1 % (37.0-47.0); HEMOGLOBIN 15.1 g/dL (12.0-16.0); IMMATURE GRAN ABSOLUTE AUTO 0.01 K/uL (0.00-0.05); IMMATURE GRAN PERCENT AUTO 0.1 % (0.0-0.4); LYMPHOCYTES ABSOLUTE AUTO 2.09 K/uL (1.00-4.80); LYMPHOCYTES PERCENT AUTO 31.2 % (24.0-44.0); MEAN CORPUSCULAR HGB CONC 34.2 g/dL (32.0-36.0); MEAN CORPUSCULAR VOLUME 84.8 fL (83.0-99.0); MEAN PLATELET VOLUME 9.8 fL (9.4-12.3); MONOCYTES ABSOLUTE AUTO 0.52 K/uL (0.00-0.80); MONOCYTES PERCENT AUTO 7.8 % (0.0-8.0); NEUTROPHILS ABSOLUTE AUTO 3.89 K/uL (1.80-7.70); NEUTROPHILS PERCENT AUTO 58.1 % (41.0-71.0); PLATELET COUNT,PLT 202 K/uL (150-400)
[2024-04-27 09:10] LABS: A/G RATIO 1.1 (0.9-1.6); ALBUMIN 4.3 g/dL (3.4-5.0); BILIRUBIN TOTAL 0.6 mg/dL (0.2-1.0); CARBON DIOXIDE,CO2 27.1 mmol/L (21.0-32.0); EST CRCL DRUG DOSING (CG) 82.23 mL/min; POTASSIUM,K 3.8 mmol/L (3.5-5.1); PROTEIN TOTAL,TP 8.1 g/dL (6.4-8.2)
[2024-04-27 09:20] LABS: APPEARANCE,URINE CLEAR; COLOR,URINE YELLOW; GLUCOSE,URINE NEGATIVE (NEGATIVE); KETONES,URINE TRACE mg/dL (NEGATIVE); LEUKOCYTE ESTERASE,URINE NEGATIVE (NEGATIVE); NITRITE,URINE NEGATIVE (NEGATIVE); OCCULT BLOOD,URINE NEGATIVE (NEGATIVE); PH,URINE 5.5 (5.0-8.0); PROTEIN,URINE NEGATIVE (NEGATIVE); UROBILINOGEN,URINE 0.2 EU/dL (<2.0)
[2024-04-27 09:21] LABS: CALCIUM 8.8 mg/dL (8.5-10.1)
[2024-04-27 09:21] LABS: BILIRUBIN,URINE SMALL (NEGATIVE)
[2024-04-27 09:27] LABS: BACTERIA,URINE RARE (NEGATIVE); EPITHELIAL CELLS,URINE MODERATE (NONE-FEW); MUCUS,URINE LIGHT (NONE-MOD); RBC,URINE 0-2 (0-2/HPF); WBC,URINE 0-2 (0-5/HPF)
[2024-04-27] MEDS: Ketorolac 30 MG/ML SDV IVPUSH ONE (09:29)
[2024-04-27] MEDS: Sodium Chloride 0.9% 2.5 ML Syringe FLUSH PRN (09:30)
[2024-04-27] MEDS: Sodium Chloride 0.9% 10 ML Syringe FLUSH PRN (09:30)
[2024-04-27] MEDS: Iopamidol 755 MG/ML 500 ML Multipack Bottle IVPUSH STA (10:01)
== END 2024-04-27 11:30 | disposition home or self-care (01) ==
LOC: MW.ED 08:28
DX: R10.9 Unspecified abdominal pain (principal); Z75.8 Other problems related to medical facilities and other health care; Z90.49 Acquired absence of other specified parts of digestive tract
CPT/HCPCS: 36415; 74177; 80053; 81001; 81025; 83690; 85025; 96374; 99284; J1885; J3490; Q9967

== ENCOUNTER 2024-07-25 15:55 | Emergency (ER) | payer BC ==
[2024-07-25 17:00] LABS: BASOPHILS ABSOLUTE AUTO 0.03 K/uL (0.00-0.20); BASOPHILS PERCENT AUTO 0.4 % (0.0-1.0); EOSINOPHILS ABSOLUTE AUTO 0.11 K/uL (0.00-0.45); EOSINOPHILS PERCENT AUTO 1.6 % (0.0-6.0); HEMATOCRIT 39.6 % (37.0-47.0); HEMOGLOBIN 14.1 g/dL (12.0-16.0); IMMATURE GRAN ABSOLUTE AUTO 0.02 K/uL (0.00-0.05); IMMATURE GRAN PERCENT AUTO 0.3 % (0.0-0.4); LYMPHOCYTES ABSOLUTE AUTO 1.64 K/uL (1.00-4.80); LYMPHOCYTES PERCENT AUTO 24.4 % (24.0-44.0); MEAN CORPUSCULAR HEMOGLOBIN 29.7 pg (28.0-32.0); MEAN CORPUSCULAR HGB CONC 35.6 g/dL (32.0-36.0); MEAN CORPUSCULAR VOLUME 83.5 fL (83.0-99.0); MEAN PLATELET VOLUME 9.6 fL (9.4-12.3); MONOCYTES ABSOLUTE AUTO 0.49 K/uL (0.00-0.80); MONOCYTES PERCENT AUTO 7.3 % (0.0-8.0); NEUTROPHILS ABSOLUTE AUTO 4.44 K/uL (1.80-7.70); PLATELET COUNT,PLT 220 K/uL (150-400); RED BLOOD CELL COUNT 4.74 M/uL (4.10-5.30); WHITE BLOOD CELL COUNT,WBC 6.73 K/uL (3.9-11.3)
[2024-07-25 17:31] LABS: A/G RATIO 1.1 (0.9-1.6); ALANINE AMINOTRANSFERASE,ALT 24 IU/L (14-63); ALBUMIN 4.3 g/dL (3.4-5.0); ALKALINE PHOSPHATASE 83 U/L (46-116); ASPARTATE AMNIOTRANSFERASE,AST 20 IU/L (15-37); BILIRUBIN TOTAL 0.5 mg/dL (0.2-1.0); BLOOD UREA NITROGEN,BUN 16 mg/dL (7.0-18.0); CALCIUM 9.3 mg/dL (8.5-10.1); CARBON DIOXIDE,CO2 25.6 mmol/L (21.0-32.0); CHLORIDE,CL 104 mmol/L (98-107); EST CRCL DRUG DOSING (CG) 73.35 mL/min; GLUCOSE RANDOM 92 mg/dL (74-106); POTASSIUM,K 4.2 mmol/L (3.5-5.1); PROTEIN TOTAL,TP 8.1 g/dL (6.4-8.2); SODIUM,NA 138 mmol/L (136-145)
[2024-07-25 17:33] LABS: ESTIMATED GFR 77 mL/min (>60)
== END 2024-07-25 20:12 | disposition home or self-care (01) ==
LOC: MW.ED 15:55
DX: R07.89 Other chest pain (principal); Z90.49 Acquired absence of other specified parts of digestive tract; Z79.899 Other long term (current) drug therapy; Z75.8 Other problems related to medical facilities and other health care
CPT/HCPCS: 36415; 71046; 71046-26; 80053; 84484; 85025; 93005; 99285

== ENCOUNTER 2024-09-23 13:45 | Emergency (ER) | payer BC ==
[2024-09-23] MEDS: Alum Hydrox/Mag Hydrox/Simeth 15 ML, Lidocaine 2% 5 ML PO ONE (14:12)
[2024-09-23 14:37] LABS: BASOPHILS ABSOLUTE AUTO 0.03 K/uL (0.00-0.20); BASOPHILS PERCENT AUTO 0.5 % (0.0-1.0); EOSINOPHILS ABSOLUTE AUTO 0.11 K/uL (0.00-0.45); EOSINOPHILS PERCENT AUTO 1.9 % (0.0-6.0); HEMATOCRIT 41.5 % (37.0-47.0); HEMOGLOBIN 14.3 g/dL (12.0-16.0); IMMATURE GRAN ABSOLUTE AUTO 0.01 K/uL (0.00-0.05); IMMATURE GRAN PERCENT AUTO 0.2 % (0.0-0.4); LYMPHOCYTES ABSOLUTE AUTO 2.09 K/uL (1.00-4.80); LYMPHOCYTES PERCENT AUTO 35.6 % (24.0-44.0); MEAN CORPUSCULAR HEMOGLOBIN 29.2 pg (28.0-32.0); MEAN CORPUSCULAR HGB CONC 34.5 g/dL (32.0-36.0); MEAN CORPUSCULAR VOLUME 84.7 fL (83.0-99.0); MEAN PLATELET VOLUME 10.1 fL (9.4-12.3); MONOCYTES ABSOLUTE AUTO 0.45 K/uL (0.00-0.80); MONOCYTES PERCENT AUTO 7.7 % (0.0-8.0); NEUTROPHILS ABSOLUTE AUTO 3.18 K/uL (1.80-7.70); NEUTROPHILS PERCENT AUTO 54.1 % (41.0-71.0); PLATELET COUNT,PLT 184 K/uL (150-400); WHITE BLOOD CELL COUNT,WBC 5.87 K/uL (3.9-11.3)
[2024-09-23 15:17] LABS: A/G RATIO 1.1 (0.9-1.6); ALANINE AMINOTRANSFERASE,ALT 27 IU/L (14-63); ALBUMIN 4.2 g/dL (3.4-5.0); ALKALINE PHOSPHATASE 74 U/L (46-116); ASPARTATE AMNIOTRANSFERASE,AST 17 IU/L (15-37); BILIRUBIN TOTAL 0.7 mg/dL (0.2-1.0); BLOOD UREA NITROGEN,BUN 9 mg/dL (7.0-18.0); CALCIUM 8.9 mg/dL (8.5-10.1); CARBON DIOXIDE,CO2 24.4 mmol/L (21.0-32.0); CHLORIDE,CL 103 mmol/L (98-107); GLUCOSE RANDOM 85 mg/dL (74-106); LIPASE 97 U/L (16-77); POTASSIUM,K 3.6 mmol/L (3.5-5.1); PROTEIN TOTAL,TP 7.9 g/dL (6.4-8.2); SODIUM,NA 140 mmol/L (136-145)
[2024-09-23 15:41] LABS: ESTIMATED GFR 77 mL/min (>60)
[2024-09-23] MEDS: Lidocaine 4% Patch TOP STA (16:25)
== END 2024-09-23 16:28 | disposition home or self-care (01) ==
LOC: MW.ED 13:45
DX: R07.9 Chest pain, unspecified (principal); R51.9 Headache, unspecified; K21.9 Gastro-esophageal reflux disease without esophagitis; Z90.49 Acquired absence of other specified parts of digestive tract; Z79.899 Other long term (current) drug therapy; Z75.8 Other problems related to medical facilities and other health care
CPT/HCPCS: 36415; 71045; 80053; 83690; 83735; 84484; 85025; 87428; 93005; 99285; A9270; 99284

== ENCOUNTER 2024-10-15 06:11 | Day surgery (SDC) | payer BC ==
[~2024-10-15 06:11] MED LIST: Sodium Chloride 0.9% 10 ML Syringe FLUSH PRN; Sodium Chloride 0.9% 2.5 ML Syringe FLUSH PRN; Sodium Chloride 0.9% 20 ML SDV IV PRN; ceFAZolin 1 GM in Sodium Chloride 0.9% 50 ML IV ONE
[2024-10-15] MEDS: Lactated Ringers 1,000 ML IV SCH (06:58)
[2024-10-15] MEDS ORDERED: Naloxone 0.4 MG/ML SDV IVPUSH PRN (07:10)
[2024-10-15] MEDS ORDERED: Metoclopramide 10 MG/2 ML SDV IVPUSH PRN (07:10)
[2024-10-15] MEDS ORDERED: Ondansetron 4 MG/2 ML SDV IVPUSH PRN (07:10)
[2024-10-15] MEDS ORDERED: Albuterol 0.083% 2.5 MG/3 ML Neb Soln NEB PRN (07:10)
[2024-10-15] MEDS ORDERED: Morphine 2 MG/ML SYRINGE IVPUSH PRN (07:10)
[2024-10-15] MEDS ORDERED: Phenylephrine HCl In 0.9% NaCl 1 MG/10 ML Syringe IVPUSH PRN (07:10)
[2024-10-15] MEDS ORDERED: Bupivacaine 0.5% 30 ML SDV ONE (07:11)
[2024-10-15] MEDS ORDERED: Lidocaine 2% 5 ML SDV ONE (07:15)
[2024-10-15] MEDS ORDERED: Rocuronium Bromide 50 MG/5 ML Syringe ONE (07:15)
[2024-10-15] MEDS ORDERED: Ondansetron 4 MG/2 ML SDV ONE ×2 (07:15→07:33)
[2024-10-15] MEDS ORDERED: Dexamethasone 4 MG/ML 5 ML MDV ONE (07:15)
[2024-10-15] MEDS ORDERED: Propofol 200 MG/20 ML SDV ONE (07:15)
[2024-10-15] MEDS ORDERED: Sugammadex Sodium 200 MG/2 ML VIAL IV ONE (07:16)
[2024-10-15] MEDS ORDERED: ceFAZolin 2 GM Vial ONE (07:16)
[2024-10-15] MEDS ORDERED: Ketorolac 30 MG/ML SDV ONE (07:16)
[2024-10-15] MEDS ORDERED: fentaNYL 100 MCG/2 ML SDV ONE (07:16)
[2024-10-15] MEDS ORDERED: dexmedeTOMIDine HCl 200 MCG/2 ML SDV ONE (07:18)
[2024-10-15] MEDS ORDERED: propofoL 500 MG/50 ML 50 ML ONE (07:22)
[2024-10-15] MEDS ORDERED: Bupivacaine 0.25% 30 ML SDV ONE (07:23)
[2024-10-15] MEDS ORDERED: diphenhydrAMINE 50 MG/ML SDV ONE (07:32)
[2024-10-15] MEDS ORDERED: Metoclopramide 10 MG/2 ML SDV ONE (07:32)
[2024-10-15] MEDS ORDERED: Famotidine 20 MG/2 ML SDV ONE (07:36)
[2024-10-15] MEDS: fentaNYL 50 MCG/ML SDV IVPUSH PRN (09:50)
[2024-10-15] MEDS: HYDROmorphone 1 MG/ML Syringe IVPUSH PRN (10:10)
== END 2024-10-15 11:40 | disposition home or self-care (01) ==
LOC: MW.SDS 06:11
PROVIDERS: ATTEND Surgery
DX: K81.1 Chronic cholecystitis (principal); K82.8 Other specified diseases of gallbladder; K21.9 Gastro-esophageal reflux disease without esophagitis
CPT/HCPCS: 47562; 64488; 81025; J0665; J0690; J1100; J1171; J1200; J1885; J2003; J2405; J2704; J2765; J3010; J7120; 00790; 64486; J3490

== ENCOUNTER 2024-10-17 12:01 | Emergency (ER) | payer BC ==
[2024-10-17] MEDS ORDERED: Sodium Chloride 0.9% 10 ML Syringe FLUSH PRN (12:27)
[2024-10-17] MEDS: Sodium Chloride 0.9% 1,000 ML IV SCH (12:33)
[2024-10-17] MEDS: Metoclopramide 10 MG/2 ML SDV IVPUSH ONE (12:33)
[2024-10-17 13:47] LABS: BASOPHILS ABSOLUTE AUTO 0.03 K/uL (0.00-0.20); BASOPHILS PERCENT AUTO 0.4 % (0.0-1.0); EOSINOPHILS ABSOLUTE AUTO 0.08 K/uL (0.00-0.45); EOSINOPHILS PERCENT AUTO 1.1 % (0.0-6.0); HEMATOCRIT 35.7 % (37.0-47.0); HEMOGLOBIN 12.2 g/dL (12.0-16.0); IMMATURE GRAN ABSOLUTE AUTO 0.01 K/uL (0.00-0.05); IMMATURE GRAN PERCENT AUTO 0.1 % (0.0-0.4); LYMPHOCYTES ABSOLUTE AUTO 1.48 K/uL (1.00-4.80); LYMPHOCYTES PERCENT AUTO 19.8 % (24.0-44.0); MEAN CORPUSCULAR HEMOGLOBIN 29.4 pg (28.0-32.0); MEAN CORPUSCULAR HGB CONC 34.2 g/dL (32.0-36.0); MEAN PLATELET VOLUME 9.8 fL (9.4-12.3); MONOCYTES ABSOLUTE AUTO 0.49 K/uL (0.00-0.80); MONOCYTES PERCENT AUTO 6.6 % (0.0-8.0); NEUTROPHILS ABSOLUTE AUTO 5.39 K/uL (1.80-7.70); PLATELET COUNT,PLT 150 K/uL (150-400); RED BLOOD CELL COUNT 4.15 M/uL (4.10-5.30); WHITE BLOOD CELL COUNT,WBC 7.48 K/uL (3.9-11.3)
[2024-10-17 14:14] LABS: A/G RATIO 1.2 (0.9-1.6); ALBUMIN 3.7 g/dL (3.4-5.0); BILIRUBIN TOTAL 0.4 mg/dL (0.2-1.0); CARBON DIOXIDE,CO2 26.7 mmol/L (21.0-32.0); CREATININE 0.9 mg/dL (0.6-1.0); EST CRCL DRUG DOSING (CG) 81.5 mL/min; MAGNESIUM 1.6 mg/dL (1.8-2.4); POTASSIUM,K 3.4 mmol/L (3.5-5.1); PROTEIN TOTAL,TP 6.7 g/dL (6.4-8.2)
== END 2024-10-17 14:38 | disposition home or self-care (01) ==
LOC: MW.ED 12:01
DX: G89.18 Other acute postprocedural pain (principal); R10.11 Right upper quadrant pain; Z79.899 Other long term (current) drug therapy; Z90.49 Acquired absence of other specified parts of digestive tract
CPT/HCPCS: 36415; 71045; 80053; 83690; 83735; 85025; 96361; 96374; 99285; J2765; J7030; 99283

== ENCOUNTER 2024-10-18 22:30 | Emergency (ER) | payer BC ==
[2024-10-18] MEDS ORDERED: HYDROmorphone 0.5 MG/0.5 ML Syringe IVPUSH ONE (22:49)
[2024-10-18] MEDS ORDERED: HYDROmorphone 0.5 MG/0.5 ML Syringe IVPUSH PRN (22:57)
[2024-10-18] MEDS ORDERED: droPERidol 2.5 MG/ML SDV IVPUSH PRN (22:57)
[2024-10-18 22:58] LABS: BASOPHILS ABSOLUTE AUTO 0.04 K/uL (0.00-0.20); BASOPHILS PERCENT AUTO 0.3 % (0.0-1.0); EOSINOPHILS ABSOLUTE AUTO 0.07 K/uL (0.00-0.45); EOSINOPHILS PERCENT AUTO 0.6 % (0.0-6.0); HEMATOCRIT 40.4 % (37.0-47.0); HEMOGLOBIN 14.2 g/dL (12.0-16.0); IMMATURE GRAN ABSOLUTE AUTO 0.03 K/uL (0.00-0.05); IMMATURE GRAN PERCENT AUTO 0.2 % (0.0-0.4); LYMPHOCYTES ABSOLUTE AUTO 1.25 K/uL (1.00-4.80); LYMPHOCYTES PERCENT AUTO 9.9 % (24.0-44.0); MEAN CORPUSCULAR HEMOGLOBIN 29.5 pg (28.0-32.0); MEAN CORPUSCULAR HGB CONC 35.1 g/dL (32.0-36.0); MEAN CORPUSCULAR VOLUME 83.8 fL (83.0-99.0); MEAN PLATELET VOLUME 9.5 fL (9.4-12.3); MONOCYTES ABSOLUTE AUTO 0.65 K/uL (0.00-0.80); MONOCYTES PERCENT AUTO 5.2 % (0.0-8.0); NEUTROPHILS ABSOLUTE AUTO 10.55 K/uL (1.80-7.70); NEUTROPHILS PERCENT AUTO 83.8 % (41.0-71.0); PLATELET COUNT,PLT 186 K/uL (150-400); RED BLOOD CELL COUNT 4.82 M/uL (4.10-5.30); WHITE BLOOD CELL COUNT,WBC 12.59 K/uL (3.9-11.3)
[2024-10-18 23:21] LABS: A/G RATIO 1.3 (0.9-1.6); ALBUMIN 4.4 g/dL (3.4-5.0); BILIRUBIN TOTAL 0.4 mg/dL (0.2-1.0); CALCIUM 9.4 mg/dL (8.5-10.1); CARBON DIOXIDE,CO2 24.6 mmol/L (21.0-32.0); EST CRCL DRUG DOSING (CG) 73.35 mL/min; POTASSIUM,K 3.4 mmol/L (3.5-5.1); PROTEIN TOTAL,TP 7.9 g/dL (6.4-8.2)
[2024-10-18] MEDS ORDERED: Polyethylene Glycol 3350 Powder 17 GM Packet PO ONE (23:24)
[2024-10-18 23:30] LABS: INR 1.01 (0.86-1.11)
[2024-10-19] MEDS: Ondansetron 4 MG/2 ML SDV IVPUSH ONE (00:21)
[2024-10-19] MEDS: Sodium Chloride 0.9% 1,000 ML IV ONE ×2 (00:21)
[2024-10-19 00:44] LABS: APPEARANCE,URINE CLEAR; BILIRUBIN,URINE NEGATIVE (NEGATIVE); COLOR,URINE YELLOW; GLUCOSE,URINE NEGATIVE (NEGATIVE); KETONES,URINE NEGATIVE (NEGATIVE); LEUKOCYTE ESTERASE,URINE NEGATIVE (NEGATIVE); NITRITE,URINE NEGATIVE (NEGATIVE); OCCULT BLOOD,URINE NEGATIVE (NEGATIVE); PH,URINE 5.5 (5.0-8.0); PROTEIN,URINE NEGATIVE (NEGATIVE); UROBILINOGEN,URINE 0.2 EU/dL (<2.0)
== END 2024-10-19 00:59 | disposition home or self-care (01) ==
LOC: MW.ED 22:30
DX: K56.41 Fecal impaction (principal); G89.18 Other acute postprocedural pain; Z90.49 Acquired absence of other specified parts of digestive tract; Z79.899 Other long term (current) drug therapy
CPT/HCPCS: 36415; 74018; 74018-26; 80053; 81003; 81025; 83690; 85025; 85610; 99283

== ENCOUNTER 2025-04-02 19:59 | Emergency (ER) | payer BC ==
[2025-04-02] MEDS ORDERED: Sodium Chloride 0.9% 10 ML Syringe FLUSH PRN (20:00)
[2025-04-02] MEDS ORDERED: Sodium Chloride 0.9% 2.5 ML Syringe FLUSH PRN (20:00)
[2025-04-02] MEDS: Ondansetron 4 MG/2 ML SDV IVPUSH ONE ×2 (20:22→23:04)
[2025-04-02 20:23] LABS: APPEARANCE,URINE CLEAR; GLUCOSE,URINE NEGATIVE (NEGATIVE); OCCULT BLOOD,URINE NEGATIVE (NEGATIVE)
[2025-04-02 20:27] LABS: BASOPHILS ABSOLUTE AUTO 0.03 K/uL (0.00-0.20); BASOPHILS PERCENT AUTO 0.5 % (0.0-1.0); EOSINOPHILS ABSOLUTE AUTO 0.03 K/uL (0.00-0.45); EOSINOPHILS PERCENT AUTO 0.5 % (0.0-6.0); IMMATURE GRAN ABSOLUTE AUTO 0.01 K/uL (0.00-0.05); IMMATURE GRAN PERCENT AUTO 0.2 % (0.0-0.4); LYMPHOCYTES ABSOLUTE AUTO 1.66 K/uL (1.00-4.80); LYMPHOCYTES PERCENT AUTO 26.3 % (24.0-44.0); MEAN PLATELET VOLUME 9.4 fL (9.4-12.3); MONOCYTES ABSOLUTE AUTO 0.41 K/uL (0.00-0.80); MONOCYTES PERCENT AUTO 6.5 % (0.0-8.0); NEUTROPHILS ABSOLUTE AUTO 4.17 K/uL (1.80-7.70); NEUTROPHILS PERCENT AUTO 66.0 % (41.0-71.0); NRBC ABSOLUTE 0.00 K/uL (0.00-0.02); NRBC PERCENT 0.0 /100WBC (0.0-0.2); PLATELET COUNT,PLT 189 K/uL (150-400); RED BLOOD CELL COUNT 4.68 M/uL (4.10-5.30); WHITE BLOOD CELL COUNT,WBC 6.31 K/uL (3.9-11.3)
[2025-04-02] MEDS: Pantoprazole 40 MG in Sodium Chloride 0.9% 10 ML IVPUSH ONE (20:27)
[2025-04-02] MEDS: Ketorolac 30 MG/ML SDV IVPUSH ONE (20:57)
[2025-04-02 21:03] LABS: A/G RATIO 1.3 (0.9-1.6); ALANINE AMINOTRANSFERASE,ALT 18.0 IU/L (14-63); ASPARTATE AMNIOTRANSFERASE,AST 16.0 IU/L (15-37); BILIRUBIN TOTAL 1.1 mg/dL (0.2-1.0); BLOOD UREA NITROGEN,BUN 17.0 mg/dL (7.0-18.0); CARBON DIOXIDE,CO2 24.0 mmol/L (21.0-32.0); CHLORIDE,CL 100.0 mmol/L (98-107); CREATININE 1.0 mg/dL (0.6-1.0); EST CRCL DRUG DOSING (CG) 68.47 mL/min; GLUCOSE RANDOM 83.0 mg/dL (74-106); POTASSIUM,K 4.1 mmol/L (3.5-5.1); PROTEIN TOTAL,TP 7.7 g/dL (6.4-8.2); SODIUM,NA 134.0 mmol/L (136-145)
[2025-04-02 21:04] LABS: ESTIMATED GFR 77.0 mL/min (>60)
== END 2025-04-02 23:21 | disposition home or self-care (01) ==
LOC: MW.ED 19:59
DX: R11.2 Nausea with vomiting, unspecified (principal); K59.00 Constipation, unspecified; R10.84 Generalized abdominal pain; K21.9 Gastro-esophageal reflux disease without esophagitis; Z90.49 Acquired absence of other specified parts of digestive tract; Z79.899 Other long term (current) drug therapy
CPT/HCPCS: 36415; 76815; 80053; 81003; 83690; 84702; 84703; 85025; 96361; 96374; 96375; 96376; 99284; A9270; J1885; J2405; J2470; J7030; 99283

== ENCOUNTER 2025-04-09 17:05 | Observation (INO) | payer BC ==
[2025-04-09] MEDS ORDERED: Promethazine 25 MG/ML SDV IM PRN (17:30)
[2025-04-09] MEDS: Lactated Ringers 1,000 ML IV SCH (18:01)
[2025-04-09] MEDS: Ondansetron 4 MG/2 ML SDV IVPUSH SCH (18:12)
[2025-04-09] MEDS: D5 1/2 NS w/ 40 mEq/L KCl 1,000 ML IV ONE (20:15)
[2025-04-09] MEDS ORDERED: Sodium Chloride 0.9% 10 ML Syringe FLUSH PRN (21:57)
[2025-04-09] MEDS ORDERED: Sodium Chloride 0.9% 2.5 ML Syringe FLUSH PRN (21:57)
[2025-04-09 22:05] LABS: APPEARANCE,URINE CLEAR; GLUCOSE,URINE NEGATIVE (NEGATIVE); OCCULT BLOOD,URINE NEGATIVE (NEGATIVE)
[2025-04-09 22:10] LABS: BASOPHILS ABSOLUTE AUTO 0.02 K/uL (0.00-0.20); BASOPHILS PERCENT AUTO 0.4 % (0.0-1.0); EOSINOPHILS ABSOLUTE AUTO 0.04 K/uL (0.00-0.45); EOSINOPHILS PERCENT AUTO 0.8 % (0.0-6.0); IMMATURE GRAN ABSOLUTE AUTO 0.01 K/uL (0.00-0.05); IMMATURE GRAN PERCENT AUTO 0.2 % (0.0-0.4); LYMPHOCYTES ABSOLUTE AUTO 1.63 K/uL (1.00-4.80); LYMPHOCYTES PERCENT AUTO 33.4 % (24.0-44.0); MEAN PLATELET VOLUME 9.0 fL (9.4-12.3); MONOCYTES ABSOLUTE AUTO 0.48 K/uL (0.00-0.80); MONOCYTES PERCENT AUTO 9.8 % (0.0-8.0); NEUTROPHILS ABSOLUTE AUTO 2.70 K/uL (1.80-7.70); NEUTROPHILS PERCENT AUTO 55.4 % (41.0-71.0); NRBC ABSOLUTE 0.00 K/uL (0.00-0.02); NRBC PERCENT 0.0 /100WBC (0.0-0.2); PLATELET COUNT,PLT 143 K/uL (150-400); RED BLOOD CELL COUNT 3.96 M/uL (4.10-5.30); WHITE BLOOD CELL COUNT,WBC 4.88 K/uL (3.9-11.3)
[2025-04-09 22:14] LABS: EPITHELIAL CELLS,URINE RARE (NONE-FEW)
[2025-04-09 22:36] LABS: A/G RATIO 1.3 (0.9-1.6); ALANINE AMINOTRANSFERASE,ALT 18 IU/L (14-63); ASPARTATE AMNIOTRANSFERASE,AST 16 IU/L (15-37); BILIRUBIN TOTAL 0.8 mg/dL (0.2-1.0); BLOOD UREA NITROGEN,BUN 10 mg/dL (7.0-18.0); CARBON DIOXIDE,CO2 26.7 mmol/L (21.0-32.0); CHLORIDE,CL 102 mmol/L (98-107); CREATININE 0.8 mg/dL (0.6-1.0); GLUCOSE RANDOM 118 mg/dL (74-106); POTASSIUM,K 3.9 mmol/L (3.5-5.1); PROTEIN TOTAL,TP 6.1 g/dL (6.4-8.2); SODIUM,NA 137 mmol/L (136-145)
[2025-04-09 22:38] LABS: ESTIMATED GFR 100 mL/min (>60)
[2025-04-10 09:34] LABS: BASOPHILS ABSOLUTE AUTO 0.01 K/uL (0.00-0.20); BASOPHILS PERCENT AUTO 0.3 % (0.0-1.0); EOSINOPHILS ABSOLUTE AUTO 0.06 K/uL (0.00-0.45); EOSINOPHILS PERCENT AUTO 1.5 % (0.0-6.0); IMMATURE GRAN ABSOLUTE AUTO 0.01 K/uL (0.00-0.05); IMMATURE GRAN PERCENT AUTO 0.3 % (0.0-0.4); LYMPHOCYTES ABSOLUTE AUTO 1.35 K/uL (1.00-4.80); LYMPHOCYTES PERCENT AUTO 34.4 % (24.0-44.0); MEAN PLATELET VOLUME 9.4 fL (9.4-12.3); MONOCYTES ABSOLUTE AUTO 0.42 K/uL (0.00-0.80); MONOCYTES PERCENT AUTO 10.7 % (0.0-8.0); NEUTROPHILS ABSOLUTE AUTO 2.08 K/uL (1.80-7.70); NEUTROPHILS PERCENT AUTO 52.8 % (41.0-71.0); NRBC ABSOLUTE 0.00 K/uL (0.00-0.02); NRBC PERCENT 0.0 /100WBC (0.0-0.2); PLATELET COUNT,PLT 143 K/uL (150-400); RED BLOOD CELL COUNT 4.01 M/uL (4.10-5.30); WHITE BLOOD CELL COUNT,WBC 3.93 K/uL (3.9-11.3)
== END 2025-04-10 12:25 | disposition home or self-care (01) ==
LOC: MW.IVTHER 17:05 → MW.MS 21:57
PROVIDERS: ADMIT Obstetrics & Gynecology; ATTEND Obstetrics & Gynecology
DX: O21.0 Mild hyperemesis gravidarum (principal); O99.891 Other specified diseases and conditions complicating pregnancy; R51.9 Headache, unspecified; Z3A.01 Less than 8 weeks gestation of pregnancy
CPT/HCPCS: 36415; 80053; 81001; 83735; 85025; 96361; 96376; A9270; G0378; J2405; J7030; J7120; 99221; 99238; J3480

== ENCOUNTER 2025-04-18 15:35 | Emergency (ER) | payer BC ==
[2025-04-18] MEDS: Promethazine 25 MG/ML SDV IM ONE (16:31)
[2025-04-18 16:49] LABS: BASOPHILS ABSOLUTE AUTO 0.04 K/uL (0.00-0.20); BASOPHILS PERCENT AUTO 0.5 % (0.0-1.0); EOSINOPHILS ABSOLUTE AUTO 0.06 K/uL (0.00-0.45); EOSINOPHILS PERCENT AUTO 0.8 % (0.0-6.0); IMMATURE GRAN ABSOLUTE AUTO 0.01 K/uL (0.00-0.05); IMMATURE GRAN PERCENT AUTO 0.1 % (0.0-0.4); LYMPHOCYTES ABSOLUTE AUTO 1.90 K/uL (1.00-4.80); LYMPHOCYTES PERCENT AUTO 24.6 % (24.0-44.0); MEAN PLATELET VOLUME 9.3 fL (9.4-12.3); MONOCYTES ABSOLUTE AUTO 0.56 K/uL (0.00-0.80); MONOCYTES PERCENT AUTO 7.2 % (0.0-8.0); NEUTROPHILS ABSOLUTE AUTO 5.16 K/uL (1.80-7.70); NEUTROPHILS PERCENT AUTO 66.8 % (41.0-71.0); NRBC ABSOLUTE 0.00 K/uL (0.00-0.02); NRBC PERCENT 0.0 /100WBC (0.0-0.2); PLATELET COUNT,PLT 190 K/uL (150-400); RED BLOOD CELL COUNT 4.73 M/uL (4.10-5.30); WHITE BLOOD CELL COUNT,WBC 7.73 K/uL (3.9-11.3)
[2025-04-18 17:10] LABS: A/G RATIO 1.2 (0.9-1.6); ALANINE AMINOTRANSFERASE,ALT 35.0 IU/L (14-63); ASPARTATE AMNIOTRANSFERASE,AST 23.0 IU/L (15-37); BILIRUBIN TOTAL 0.7 mg/dL (0.2-1.0); BLOOD UREA NITROGEN,BUN 13.0 mg/dL (7.0-18.0); CARBON DIOXIDE,CO2 21.6 mmol/L (21.0-32.0); CHLORIDE,CL 101.0 mmol/L (98-107); CREATININE 0.8 mg/dL (0.6-1.0); EST CRCL DRUG DOSING (CG) 83.42 mL/min; GLUCOSE RANDOM 78.0 mg/dL (74-106); POTASSIUM,K 3.8 mmol/L (3.5-5.1); PROTEIN TOTAL,TP 7.6 g/dL (6.4-8.2); SODIUM,NA 138.0 mmol/L (136-145)
[2025-04-18 17:12] LABS: ESTIMATED GFR 100.0 mL/min (>60)
[2025-04-18 17:34] LABS: APPEARANCE,URINE CLEAR; GLUCOSE,URINE NEGATIVE (NEGATIVE); OCCULT BLOOD,URINE NEGATIVE (NEGATIVE)
== END 2025-04-18 18:00 | disposition home or self-care (01) ==
LOC: MW.ED 15:35
DX: O21.0 Mild hyperemesis gravidarum (principal); K21.9 Gastro-esophageal reflux disease without esophagitis; Z75.3 Unavailability and inaccessibility of health-care facilities; Z79.899 Other long term (current) drug therapy; Z90.49 Acquired absence of other specified parts of digestive tract; Z3A.08 8 weeks gestation of pregnancy
CPT/HCPCS: 36415; 80053; 81003; 85025; 96360; 96372; 99283; 99284-25; J2550; J7030